=== PATIENT | female | born 1975 | race Caucasian/White ===

== ENCOUNTER 2019-02-16 11:33 | Emergency (ER) | payer OTHER ==
[~2019-02-16] VITALS: Ht 165.1 cm; Wt 104.3 kg
[2019-02-16] MEDS ORDERED: SYNTHROID150 MCG PO (11:47)
[2019-02-16] MEDS ORDERED: [UNRECOGNIZED DRUG - OTHER] (11:48)
[2019-02-16] MEDS ORDERED: BYSTOLIC10 MG PO (11:48)
[2019-02-16] MEDS ORDERED: [UNRECOGNIZED DRUG - OTHER] (11:48)
[2019-02-16] MEDS ORDERED: IBUPROFEN 800800 MG PO (13:17)
[2019-02-16 13:28] VITALS: BP 185/103
== END 2019-02-16 13:30 | disposition home or self-care (01) ==
LOC: M.ERS 11:33
DX: M25.562 Pain in left knee (principal); K21.9 Gastro-esophageal reflux disease without esophagitis; E03.9 Hypothyroidism, unspecified; Z90.89 Acquired absence of other organs